=== PATIENT | female | born 1975 | race Caucasian/White ===

== ENCOUNTER 2017-05-03 15:35 | Emergency (ER) | payer OTHER ==
[~2017-05-03] VITALS: Wt 68.0 kg
[2017-05-03] MEDS ORDERED: TAMIFLU 75MG CA75 MG PO (16:35)
[2017-05-03] MEDS ORDERED: ZOFRAN ODT4 MG SL (16:56)
== END 2017-05-03 16:43 | disposition home or self-care (01) ==
LOC: ED 15:35
DX: B34.9 Viral infection, unspecified (principal)